=== PATIENT | male | born 1995 ===

== ENCOUNTER 2024-12-08 06:12 | Day surgery (SDC) | payer OTHER, SELFPAY ==
[2024-12-08] VITALS (7 sets, daily range): BP systolic 126–142; BP diastolic 80–93; BMI 23.1
[2024-12-08] MEDS: NORMOSOL-R/PLASMALYTE-A 1000 IV (07:25)
== END 2024-12-08 11:11 | disposition home or self-care (01) ==
LOC: SDS 06:12
PROVIDERS: ATTENDING PHYSICIAN Otolaryngology
DX: J32.9 Chronic sinusitis, unspecified (principal); J34.2 Deviated nasal septum; J34.3 Hypertrophy of nasal turbinates
CPT/HCPCS: 31254; 31267; 30520; 88304; 88311; 87070; 87077; 87186; 87205; 88341; 88342